=== PATIENT | male | born 1995 | race Caucasian/White ===

== ENCOUNTER 2023-04-10 14:52 | Outpatient (AMB) | payer OTHER, SELFPAY ==
--- NOTE | 2023-04-10 15:06 | MHC.OFFWIV ---
Intake Vital Signs 04/10/23 15:07 BP 122/82 Blood Pressure Location Rt brachial Position Sitting Pulse 78 Pulse Source Pulse Oximeter Pulse Oximetry (%) 98 Oxygen Delivery Method Room Air Intake Visit Reasons: EP Skin tags? Intake Note: Patient here for skin tags under both arm pits, they have been present for a few months, he states the newest skin tag is bother some. Patient Tobacco Use Status: Never used Tobacco Allergies No Known Allergies [No Known Allergies*] Allergy (Unverified 04/11/23 06:05) Medication List - Last Reconciled 04/11/23 by Clint Goel MD No Known Home Meds Do you need a note to return to daycare/school/sports/work: No HPI EP Skin tags? HPI Details 27-year-old male presents to the office for a sick visit. Patient has a few skin tags that he would like removed. [facility] Social History Alcohol intake: never Patient Tobacco Use Status: Never used Tobacco Physical Exam Vital Signs: Last Vital Signs Pulse 78 04/10/23 15:07 BP 122/82 04/10/23 15:07 Pulse Ox 98 04/10/23 15:07 Oxygen Delivery Method Room Air 04/10/23 15:07 Skin Other: Left axilla: minute tag which is not inflamed. Similar very small tags in the right axilla Assessment & Plan Assessment & Plan (1) Skin tag: Code(s): L91.8 - Other hypertrophic disorders of the skin Plan: Advised patient against excision of these tags. Patient was reassured. Coding Level of Care Code Est Pt Level 3 (92527) Diagnoses Skin tag L91.8
[2023-04-10 15:07] VITALS: BP 122/82; PULSE 78; O2SAT 98
== END 2023-04-10 15:41 | disposition home or self-care (01) ==
PROVIDERS: PCP Nurse Practitioner Family; Visit Provider Internal Medicine
DX: L91.8 Other hypertrophic disorders of the skin (principal)
CPT/HCPCS: 99213

== ENCOUNTER 2023-07-12 09:25 | Outpatient (AMB) | payer OTHER, SELFPAY ==
--- NOTE | 2023-07-12 09:26 | MHC.PC.OV ---
Vital Signs 07/12/23 09:29 07/12/23 09:36 Height 6 ft Weight 188 lb BMI 25.5 BP 140/100 H 140/90 H Blood Pressure Location Lt brachial Lt brachial Position Sitting Sitting Pulse 76 Pulse Source Pulse Oximeter Pulse Oximetry (%) 99 Oxygen Delivery Method Room Air Intake Visit Reasons: PE Allergies No Known Allergies [No Known Allergies*] Allergy (Unverified 07/12/23 09:38) Medication List - Last Reconciled 07/12/23 by JORDON Loomis No Known Home Meds Tobacco use date assessed: 07/12/23 Dental Screening Dental Screen Date: 07/12/23 Did you have a dental visit in the last 12 months?: No Did you have a dental problem in the last 6 months where you did not have access to dental care?: No Was dental information given to patient?: Patient has dentist HPI PE HPI Details Pt is here for a PE. Will order labs. Pt's blood pressure is elevated today. Will have pt monitor his blood pressure at home and record readings. Denies chest pain, shortness of breath, headache, dizziness, and blurred vision. Pt is very anxious today, reports stress , denies any SI or HI. [facility] Social History Housing: House Alcohol intake: never Patient Tobacco Use Status: Never used Tobacco e-Cigarette/Vaping Use: Never Used Current occupational status: employed Cognitive needs: No Hearing needs: No Vision needs: No Questionnaire AUDIT C Alcohol Use Questionnaire (AUDIT-C) 1. How often do you have a drink containing alcohol?: Never 3. How often do you have six or more drinks on one occasion?: Never Total Score: 0 Score Reviewed/Action Taken: No Review of Systems Const Denies chills and Denies fever(s) Eyes Denies blurry vision ENT Denies vertigo, Denies dizziness and Denies sore throat Card Denies chest pain at rest, Denies chest pain with activity, Denies diaphoresis, Denies dyspnea and Denies dyspnea on exertion Resp Denies cough, Denies dyspnea, Denies dyspnea on exertion and Denies wheezing GI Denies abdominal pain, Denies melena, Denies hematochezia, Denies constipation, Denies diarrhea and Denies loose stools Denies hematuria Musc Denies numbness and Denies tingling Skin/Breast Denies lesions Neuro Denies vertigo, Denies dizziness, Denies numbness and Denies tingling Psych Denies anxiety, Denies depression, Denies homicidal ideation, Denies suicidal ideation and Denies other (substance abuse) Aller/Immun Denies wheezing Physical exam (Primary Care) Vital Signs: Last Vital Signs Pulse 76 07/12/23 09:29 BP 140/90 H 07/12/23 09:36 Pulse Ox 99 07/12/23 09:29 Oxygen Delivery Method Room Air 07/12/23 09:29 BMI result Body Mass Index 25.5 Tobacco/Smoking Status: Tobacco use Status Tobacco use date assessed 07/12/23 07/12/23 09:31 Patient Tobacco Use Status Never used Tobacco 07/12/23 09:29 e-Cigarette/Vaping Use Never Used 07/12/23 09:31 Const General: cooperative Nutritional Appearance: well nourished Orientation/consciousness: patient oriented x3 HENMT Head: Yes normal to inspection, Yes normocephalic and Yes atraumatic Ears: TM's normal bilaterally Eyes General: appearance normal, both eyes and all related structures Alignment and Position: alignment normal and position normal Neck Neck: Yes normal visual inspection and Yes no lymphadenopathy Thyroid: Thyroid normal Resp Effort & Inspection: normal respiratory effort Auscultation: clear to auscultation bilaterally Cardio Rate: regular rate Rhythm: regular rhythm Heart sounds: S1 normal heart sound present, S2 normal heart sound present and no murmurs GI Palpation (GI): Soft to palpation and nontender Auscultation: normal bowel sounds Male General Exam: Yes normal external exam Penis: normal penis Scrotum: scrotum normal, testes descended bilaterally and no inguinal hernias Testes: no testicular mass Skin Other: small skin tag to right upper pubic region Rashes: no rashes Neuro General: patient oriented x3, moves all extremities, no focal motor deficits and deep tendon reflexes 2+ bilaterally Romberg Test: Negative Psych Appearance: grossly normal Mental Status: mental status grossly normal Speech and movement: Normal speech and movement present Affect: Anxious affect present Attitude: cooperative Thought process: Normal thought process present Thought content: Normal thought content present Insight: Good insight present (Psych) Judgement: Good judgement present (Psych) Assessment and Plan Assessment & Plan (1) Physical exam: Code(s): Z00.00 - Encounter for general adult medical examination without abnormal findings Plan: Labs ordered Plan The patient agreed to the use of a medical office supervisor for this encounter. Scribed for JORDON Cruz by Karen Campos medical office supervisor, on 07/12/2023 at 09:35 EST Orders: Orders TSH reflex Free T4 Today Z00.00 - Encounter for general adult medical examination without abnormal findings Lipid Panel Today Z00.00 - Encounter for general adult medical examination without abnormal findings Complete Blood Count Auto Diff Today Z00.00 - Encounter for general adult medical examination without abnormal findings Comprehensive [place]. Panel Fast Today Z00.00 - Encounter for general adult medical examination without abnormal findings UA CC w/rflx Micro + Cult Today Z00.00 - Encounter for general adult medical examination without abnormal findings Coding Level of Care Code Est Pt Prev Care 18-39y(27273) Diagnoses Physical exam Z00.00
[2023-07-12 09:29] VITALS: BP 140/100; PULSE 76; O2SAT 99; BMI 25.5
[2023-07-12 09:36] VITALS: BP 140/90
== END 2023-07-12 09:56 | disposition home or self-care (01) ==
PROVIDERS: PCP Nurse Practitioner Family; Visit Provider Nurse Practitioner Family
DX: Z00.00 Encounter for general adult medical examination without abnormal findings (principal)
CPT/HCPCS: 99395

== ENCOUNTER 2024-02-14 11:24 | Outpatient (AMB) | payer OTHER, SELFPAY ==
--- NOTE | 2024-02-14 11:35 | MHC.PC.OV ---
Vital Signs 02/14/24 11:38 Height 6 ft Weight 176 lb BMI 23.9 BP 130/86 Blood Pressure Location Rt brachial Position Sitting Pulse 76 Pulse Source Pulse Oximeter Pulse Oximetry (%) 99 Oxygen Delivery Method Room Air Intake Visit Reasons: 6 month follow up Intake Note: Patient here for physical exam. Allergies No Known Allergies [No Known Allergies*] Allergy (Unverified 02/14/24 11:54) Medication List - Last Reconciled 02/14/24 by JORDON Loomis No Known Home Meds Tobacco use date assessed: 02/14/24 Dental Screening Dental Screen Date: 02/14/24 Did you have a dental visit in the last 12 months?: No Did you have a dental problem in the last 6 months where you did not have access to dental care?: No Was dental information given to patient?: Patient has dentist HPI 6 month follow up HPI Details Pt is here for a PE. Labs have already been ordered. Pt recently dislocated his right knee playing soccer. He is going to PT. [facility] Medical History (Updated 02/14/24 @ 11:53 by JORDON Loomis) Right knee dislocation Social History Housing: House Alcohol intake: never Patient Tobacco Use Status: Never used Tobacco e-Cigarette/Vaping Use: Never Used Current occupational status: employed Cognitive needs: No Hearing needs: No Vision needs: No Questionnaire AUDIT C Alcohol Use Questionnaire (AUDIT-C) 1. How often do you have a drink containing alcohol?: Never 3. How often do you have six or more drinks on one occasion?: Never Total Score: 0 Score Reviewed/Action Taken: No Review of Systems Const Denies chills and Denies fever(s) Eyes Denies blurry vision ENT Denies vertigo, Denies dizziness and Denies sore throat Card Denies chest pain at rest, Denies chest pain with activity, Denies diaphoresis, Denies dyspnea and Denies dyspnea on exertion Resp Denies cough, Denies dyspnea, Denies dyspnea on exertion and Denies wheezing GI Denies abdominal pain, Denies melena, Denies hematochezia, Denies constipation, Denies diarrhea and Denies loose stools Denies hematuria Musc Denies numbness and Denies tingling Skin/Breast Denies lesions Neuro Denies vertigo, Denies dizziness, Denies numbness and Denies tingling Psych Denies anxiety, Denies depression, Denies homicidal ideation, Denies suicidal ideation and Denies other (substance abuse) Aller/Immun Denies wheezing Physical exam (Primary Care) Vital Signs: Last Vital Signs Pulse 76 02/14/24 11:38 BP 130/86 02/14/24 11:38 Pulse Ox 99 02/14/24 11:38 Oxygen Delivery Method Room Air 02/14/24 11:38 BMI result Body Mass Index 23.9 Tobacco/Smoking Status: Tobacco use Status Tobacco use date assessed 02/14/24 02/14/24 11:40 Patient Tobacco Use Status Never used Tobacco 02/14/24 11:37 e-Cigarette/Vaping Use Never Used 02/14/24 11:37 Const General: cooperative Nutritional Appearance: well nourished Orientation/consciousness: patient oriented x3 HENMT Head: Yes normal to inspection, Yes normocephalic and Yes atraumatic Ears: TM's normal bilaterally Eyes General: appearance normal, both eyes and all related structures Alignment and Position: alignment normal and position normal Neck Neck: Yes normal visual inspection and Yes no lymphadenopathy Thyroid: Thyroid normal Resp Effort & Inspection: normal respiratory effort Auscultation: clear to auscultation bilaterally Cardio Rate: regular rate Rhythm: regular rhythm Heart sounds: S1 normal heart sound present, S2 normal heart sound present and no murmurs GI Palpation (GI): Soft to palpation and nontender Auscultation: normal bowel sounds Male General Exam: Yes normal external exam Penis: normal penis Scrotum: scrotum normal, testes descended bilaterally and no inguinal hernias Testes: no testicular mass Skin Rashes: no rashes Neuro General: patient oriented x3, moves all extremities, no focal motor deficits and deep tendon reflexes 2+ bilaterally Romberg Test: Negative Extrem Other: right knee slightly swollen, able to flex and extend right knee without difficulty, very slight discomfort noted Psych Appearance: grossly normal Mental Status: mental status grossly normal Speech and movement: Normal speech and movement present Affect: normal affect Attitude: cooperative Thought process: Normal thought process present Thought content: Normal thought content present Insight: Good insight present (Psych) Judgement: Good judgement present (Psych) Assessment and Plan Assessment & Plan (1) Encounter for routine adult physical exam with abnormal findings: Code(s): Z00.01 - Encounter for general adult medical examination with abnormal findings (2) Right knee dislocation: Code(s): S83.104A - Unspecified dislocation of right knee, initial encounter Plan: going to PT. Plan The patient agreed to the use of a bilingual medical assistant for this encounter. Scribed for JORDON Cruz by Karen Campos bilingual medical assistant, on 02/14/2024 at 11:45 EST. Coding Level of Care Code Est Pt Prev Care 18-39y(79902) Diagnoses Encounter for routine adult physical exam with abnormal findings Z00.01 Right knee dislocation S83.104A
[2024-02-14 11:38] VITALS: BP 130/86; PULSE 76; O2SAT 99; BMI 23.9
== END 2024-02-14 11:58 | disposition home or self-care (01) ==
PROVIDERS: PCP Nurse Practitioner Family; Visit Provider Nurse Practitioner Family
DX: Z00.00 Encounter for general adult medical examination without abnormal findings (principal); S83.104A Unspecified dislocation of right knee, initial encounter
CPT/HCPCS: 99395

== ENCOUNTER 2024-03-26 10:55 | Outpatient (AMB) | payer OTHER, SELFPAY ==
--- NOTE | 2024-03-26 10:59 | MHC.OFFWIV ---
Intake Vital Signs 03/26/24 11:00 Height 6 ft Weight 180 lb BMI 24.4 BP 130/82 Blood Pressure Location Rt brachial Position Sitting Pulse 78 Pulse Source Pulse Oximeter Temp 98.0 F Temp Source Temporal Artery Scan Pulse Oximetry (%) 97 Intake Visit Reasons: EP bump on back of rt knee Sunday Intake Note: pt is here for bump on back of right knee since sunday Patient Tobacco Use Status: Never used Tobacco Allergies No Known Allergies [No Known Allergies*] Allergy (Verified 03/26/24 11:01) Do you need a note to return to daycare/school/sports/work: No HPI HPI Comments History of Present Illness Details Patient is a 28-year-old male complaining of a bump in the back of his right knee. He states he injured his knee on January 08 and was told he has a meniscus tear with other issues but he went to physical therapy and everything is healed. But he just noticed this lump a few weeks ago when he was working out at the gym. He states it is not painful. [facility] Medical History (Updated 03/26/24 @ 11:28 by Rosalie Webber PA-C) Right knee dislocation Social History Housing: House Alcohol intake: never Patient Tobacco Use Status: Never used Tobacco e-Cigarette/Vaping Use: Never Used Current occupational status: employed Cognitive needs: No Hearing needs: No Vision needs: No Review of Systems Const All systems reviewed & are unremarkable except as noted in HPI and below Physical Exam Vital Signs: Last Vital Signs Temp 98.0 F 03/26/24 11:00 Pulse 78 03/26/24 11:00 BP 130/82 03/26/24 11:00 Pulse Ox 97 03/26/24 11:00 BMI result Body Mass Index 24.4 Const General: cooperative, healthy appearing, comfortable, no acute distress and well developed Orientation/consciousness: patient oriented x3 Limitations: no limitations Eyes General: appearance normal, both eyes and all related structures Resp Effort & Inspection: normal respiratory effort and able to speak in complete sentences Neuro General: patient oriented x3 Extrem Left lower extremity: hip/thigh (Small, non mobile, firm lump on distal medial posterior thigh (almost knee)) Details: normal to inspection and normal ROM; no tenderness, no swelling, no abrasions, no lacerations, no ecchymosis, no deformity and no unusual warmth Assessment & Plan Assessment & Plan (1) Lymph node enlargement: Code(s): R59.9 - Enlarged lymph nodes, unspecified Plan: Explained to patient that this feels like a lymph node, could be enlarged because of his recent injury. It could stay the same or a critical down over time. If it gets worse or gets bigger or becomes painful, he knows to call his PCP and ask for an ultrasound to investigate further. Plan See above Coding Level of Care Code Est Pt Level 3 (98518) Diagnoses Lymph node enlargement R59.9
[2024-03-26 11:00] VITALS: BP 130/82; PULSE 78; TEMP 36.7; O2SAT 97; BMI 24.4
== END 2024-03-26 11:39 | disposition home or self-care (01) ==
PROVIDERS: PCP Nurse Practitioner Family; Visit Provider Physician Assistant
DX: R59.9 Enlarged lymph nodes, unspecified (principal)
CPT/HCPCS: 99213

== ENCOUNTER 2024-04-25 14:53 | Outpatient (AMB) | payer OTHER, SELFPAY ==
[2024-04-25 15:13] VITALS: BP 118/80; PULSE 65; TEMP 36.7; O2SAT 98; BMI 24.4
--- NOTE | 2024-04-25 15:13 | MHC.OFFWIV ---
Intake Vital Signs 04/25/24 15:13 Height 6 ft Weight 180 lb BMI 24.4 BP 118/80 Blood Pressure Location Rt brachial Position Sitting Pulse 65 Pulse Source Pulse Oximeter Temp 98.0 F Temp Source Temporal Artery Scan Pulse Oximetry (%) 98 Oxygen Delivery Method Room Air Intake Visit Reasons: bump on left side waist Intake Note: pt c/o bump on LT side groin. not painful. x 2 months Patient Tobacco Use Status: Never used Tobacco Allergies No Known Allergies [No Known Allergies*] Allergy (Verified 04/25/24 15:13) Do you need a note to return to daycare/school/sports/work: No HPI HPI Comments History of Present Illness Details This is a 28-year-old male who presented to the walk-in clinic complaining of a lesion on his pubic area. He states it has been going on for several months. He states he brought it up to his primary care physician who told him not to worry about it; however, he states that his primary care physician did offer cryotherapy versus curettage although patient declined at that time. He states that it is not bothersome but he is not thrilled about the location of the lesion. [facility] Medical History (Updated 03/26/24 @ 11:28 by Rosalie Webber PA-C) Right knee dislocation Social History Housing: House Alcohol intake: never Patient Tobacco Use Status: Never used Tobacco e-Cigarette/Vaping Use: Never Used Current occupational status: employed Cognitive needs: No Hearing needs: No Vision needs: No Review of Systems Const All systems reviewed & are unremarkable except as noted in HPI and below Reports no additional complaints Eyes Reports no additional complaints ENT Reports no additional complaints Card Reports no additional complaints Resp Reports no additional complaints GI Reports no additional complaints Reports no additional complaints Musc Reports no additional complaints Skin/Breast Reports system reviewed and no additional complaints, except as documented Neuro Reports no additional complaints Psych Reports no additional complaints Endo Reports no additional complaints Bishop/Lymph Reports no additional complaints Aller/Immun Reports no additional complaints Physical Exam Vital Signs: Last Vital Signs Temp 98.0 F 04/25/24 15:13 Pulse 65 04/25/24 15:13 BP 118/80 04/25/24 15:13 Pulse Ox 98 04/25/24 15:13 Oxygen Delivery Method Room Air 04/25/24 15:13 BMI result Body Mass Index 24.4 Const Other: Vital signs reviewed. Constitutional: Non-toxic appearing. No acute distress. Well-developed and well-nourished. HEENT: Normocephalic and atraumatic. Skin: Warm and dry. There is a firm dome shaped lesion present on the patient's pubic area. There is no surrounding erythema. Neck: Full and painless range of motion. No cervical lymphadenopathy. Cardio: Regular rate. No lower extremity edema. No JVD. Pulmonary: No respiratory distress. No accessory muscle usage. Gastrointestinal: Soft, nontender, and nondistended in all 4 quadrants. Musculoskeletal: Normal range of motion in joints throughout the body. No deformity or other signs of injury. Neuro: Alert and oriented x4. Cranial nerves 2-12 grossly intact. No focal deficits appreciated. Psych: Normal mood and affect. Assessment & Plan Assessment & Plan (1) Skin lesion: Code(s): L98.9 - Disorder of the skin and subcutaneous tissue, unspecified Plan: This is a 28-year-old male who presented to the walk-in clinic complaining of a lesion to his pubic area. On physical examination, there is a firm dome-shaped papule to the left side of his pubic region. This appears consistent with molluscum contagiosum although this diagnosis can not be confirmed. The other differential diagnosis would be verrucae. I explained to the patient that these lesions are likely benign and would be self-limiting; however, patient was asking for treatment given the location of this lesion in the fact that he is sexually active. I advised the patient that I can not perform cryotherapy here as we do not yet have the supplies as they are although I am told we are ordering more. I am also unable to perform curettage. Patient was made aware that these treatments should be performed by clinician. Patient was encouraged to follow up with PCP for possible treatment options. Patient verbalizes understanding and he was in agreement with the plan and the patient was extremely appreciative of the help. Coding Level of Care Code Est Pt Level 3 (01230) Diagnoses Skin lesion L98.9
== END 2024-04-25 15:50 | disposition home or self-care (01) ==
PROVIDERS: PCP Nurse Practitioner Family; Visit Provider Physician Assistant Medical
DX: L98.9 Disorder of the skin and subcutaneous tissue, unspecified (principal)
CPT/HCPCS: 99213

== ENCOUNTER 2024-06-04 13:42 | Outpatient (AMB) | payer OTHER, SELFPAY ==
--- NOTE | 2024-06-04 13:50 | MHC.OFFWIV ---
Intake Vital Signs 06/04/24 13:51 Height 6 ft Weight 182 lb BMI 24.7 BP 128/80 Blood Pressure Location Lt brachial Position Sitting Pulse 90 Pulse Source Pulse Oximeter Temp 98.0 F Temp Source Oral Pulse Oximetry (%) 99 Oxygen Delivery Method Room Air Intake Visit Reasons: EP infected bump Intake Note: pt c/o bump in groin area. Discharge. Ongoing x 1 month. No pain Patient Tobacco Use Status: Never used Tobacco Allergies No Known Allergies [No Known Allergies*] Allergy (Verified 06/04/24 13:51) Do you need a note to return to daycare/school/sports/work: No HPI HPI Comments History of Present Illness Details Patient is a 28-year-old male complaining of a lesion on his upper pubic area that started bleeding today. He is not quite sure why. He states he has an appointment with Dermatology in 1 month about the lesion, he was told it was most likely molluscum and he was looking to get it frozen off by Dermatology. He states that today he noticed it was leaking some blood, he was not sure if he hit it on anything but he could not recall a specific injury. He is worried that it is infected. [facility] Medical History (Updated 06/04/24 @ 14:17 by Rosalie Webber PA-C) Right knee dislocation Social History (Reviewed 02/14/24 @ 11:54 by Rivera Colbert, [facility]) Housing: House Alcohol intake: never Patient Tobacco Use Status: Never used Tobacco e-Cigarette/Vaping Use: Never Used Current occupational status: employed Cognitive needs: No Hearing needs: No Vision needs: No Review of Systems Const All systems reviewed & are unremarkable except as noted in HPI and below Physical Exam Vital Signs: Last Vital Signs Temp 98.0 F 06/04/24 13:51 Pulse 90 06/04/24 13:51 BP 128/80 06/04/24 13:51 Pulse Ox 99 06/04/24 13:51 Oxygen Delivery Method Room Air 06/04/24 13:51 BMI result Body Mass Index 24.7 Const General: cooperative, healthy appearing, comfortable, no acute distress and well developed Orientation/consciousness: patient oriented x3 Limitations: no limitations HEENT Head: Yes normal to inspection Neck Neck: Yes normal visual inspection and Yes supple Skin Other: Suprapubic area has a 0.5 cm papule with a central crust, removed the crust and there is a pinpoint area of blood. Neuro General: patient oriented x3 Assessment & Plan Assessment & Plan (1) Skin lesion: Code(s): L98.9 - Disorder of the skin and subcutaneous tissue, unspecified Plan: Physical exam showed no signs of infection, looks like he had a little bit of trauma to the area and it bled a little bit, possibly a little bit of an ingrown hair. Recommended he keep his appointment with [facility] next month so they can biopsy the lesion and treated appropriately. Plan See above Coding Level of Care Code Est Pt Level 3 (53370) Diagnoses Skin lesion L98.9
[2024-06-04 13:51] VITALS: BP 128/80; PULSE 90; TEMP 36.7; O2SAT 99; BMI 24.7
== END 2024-06-04 14:14 | disposition home or self-care (01) ==
PROVIDERS: PCP Nurse Practitioner Family; Visit Provider Physician Assistant
DX: L98.9 Disorder of the skin and subcutaneous tissue, unspecified (principal)
CPT/HCPCS: 99213

== ENCOUNTER 2024-06-26 14:35 | Outpatient (AMB) | payer OTHER, SELFPAY ==
--- NOTE | 2024-06-26 14:57 | AM.OFFWIN_ITS ---
Intake Vital Signs 3 06/26/24 14:58 Height 6 ft Weight 180 lb BMI 24.4 BP 112/80 Blood Pressure Location Rt brachial Position Sitting Pulse 62 Pulse Source Pulse Oximeter Pulse Oximetry (%) 98 Oxygen Delivery Method Room Air Intake Visit Reasons: EP ? ingrown toenail on left thumb Intake Note: Patient here for ingrown nail on great toe on left foot. Patient Tobacco Use Status: Never used Tobacco Allergies No Known Allergies [No Known Allergies*] Allergy (Verified 06/26/24 14:59) Do you need a note to return to daycare/school/sports/work: No HPI HPI Comments 2 History of Present Illness0 Details Patient is a 28-year-old male complaining of what he thinks is an ingrown toenail on the great toe of his left foot, he is also complaining of yellowing of the toenail and is asking for treatment of that. He states the area around the toenail has been leaking fluid but mostly blood and it is very tender. [facility] Medical History (Updated 06/26/24 @ 15:42 by Rosalie Webber PA-C) Right knee dislocation Social History Housing: House Alcohol intake: never Patient Tobacco Use Status: Never used Tobacco e-Cigarette/Vaping Use: Never Used Current occupational status: employed Cognitive needs: No Hearing needs: No Vision needs: No Review of Systems Const All systems reviewed & are unremarkable except as noted in HPI and below Physical Exam Vital Signs: Last Vital Signs Pulse 62 06/26/24 14:58 BP 112/80 06/26/24 14:58 Pulse Ox 98 06/26/24 14:58 Oxygen Delivery Method Room Air 06/26/24 14:58 BMI result Body Mass Index 24.4 Const General: cooperative, healthy appearing, comfortable, no acute distress and well developed Orientation/consciousness: patient oriented x3 Limitations: no limitations HEENT Head: Yes normal to inspection Neck Neck: Yes normal visual inspection and Yes supple Neuro General: patient oriented x3 Extrem Ankle/foot/toe images: 2 1. Indurated erythematous area around the base and medial side of the left great toenail, crusted dried blood around the edge of the toenail; toenail itself has some yellowing; NVI, full ROM Assessment & Plan Assessment & Plan (1) Paronychia of great toe of left foot: Code(s): L03.032 - Cellulitis of left toe Plan: As area is indurated and clearly is only draining bled as evidenced by the crusted blood around the edge of it, we will treat with antibiotics. (2) Onychomycosis: Code(s): B35.1 - Tinea unguium Plan: Recommended patient reach out to his primary care doctor for treatment, explained that he needs labs to follow his liver function while he is taking any medications to treat onychomycosis Plan See above Medications: New 2 cefuroxime axetil 500 mg PO Q12H 10 tabs 0RF Coding Level of Care Code Est Pt Level 3 (88482) Diagnoses Paronychia of great toe of left foot L03.032 Onychomycosis B35.1
[2024-06-26 14:58] VITALS: BP 112/80; PULSE 62; O2SAT 98; BMI 24.4
== END 2024-06-26 15:43 | disposition home or self-care (01) ==
PROVIDERS: PCP Nurse Practitioner Family; Visit Provider Physician Assistant
DX: L03.032 Cellulitis of left toe (principal); B35.1 Tinea unguium

== ENCOUNTER → 2024-06-26 14:35 | Outpatient (BNVA) | payer OTHER, SELFPAY | PROVIDERS: PCP Nurse Practitioner Family ==

== ENCOUNTER 2024-07-24 13:57 | Outpatient (AMB) | payer OTHER, SELFPAY ==
--- NOTE | 2024-07-24 14:09 | MHC.OFFWIV ---
Intake Vital Signs 07/24/24 14:13 Height 6 ft Weight 180 lb BMI 24.4 BP 120/82 Blood Pressure Location Rt brachial Position Sitting Pulse 66 Pulse Source Pulse Oximeter Pulse Oximetry (%) 98 Oxygen Delivery Method Room Air Intake Visit Reasons: EP ? infection on his LT toe Intake Note: Patient here for toe on left foot and was put on antibiotics a couple of weeks ago which helped with the swelling but never fully went away and no wit may be happening to the to on the right foot. Patient Tobacco Use Status: Never used Tobacco Allergies No Known Allergies [No Known Allergies*] Allergy (Verified 07/24/24 14:14) Do you need a note to return to daycare/school/sports/work: No HPI HPI Comments History of Present Illness Details Patient is a 28-year-old male complaining of continued left toe pain and swelling. Was seen here a few weeks ago and given cefuroxime for paronychia that was not drainable. He states everything seemed to get better but now it is worse and it is starting on his right great toe. 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 He did try to see a stonecutter apprentice hand but he could not get an appointment until September. He does tell me he does but he is mostly getting blood out and there is not a lot of other fluid that comes out. [facility] Medical History (Updated 06/26/24 @ 15:42 by Rosalie Webber PA-C) Right knee dislocation Social History Housing: House Alcohol intake: never Patient Tobacco Use Status: Never used Tobacco e-Cigarette/Vaping Use: Never Used Current occupational status: employed Cognitive needs: No Hearing needs: No Vision needs: No Review of Systems Const All systems reviewed & are unremarkable except as noted in HPI and below Physical Exam Vital Signs: Last Vital Signs Pulse 66 07/24/24 14:13 BP 120/82 07/24/24 14:13 Pulse Ox 98 07/24/24 14:13 Oxygen Delivery Method Room Air 07/24/24 14:13 BMI result Body Mass Index 24.4 Const General: cooperative, healthy appearing, comfortable, no acute distress and well developed Orientation/consciousness: patient oriented x3 Limitations: no limitations HEENT Head: Yes normal to inspection Neck Neck: Yes normal visual inspection and Yes supple Neuro General: patient oriented x3 Extrem Other: Left great toe has area of erythema at the base of the toenail with swelling, tender to palpation, blood crusted around the entire edge of the base of the toenail. Right great toe has a small area of erythema on the lateral base of the toenail, very slight swelling and erythema, no tenderness to palpation, small crusted blood in this area Assessment & Plan Assessment & Plan (1) Paronychia of great toe of left foot: Code(s): L03.032 - Cellulitis of left toe Plan: We will treat with doxycycline as cefuroxime seemed to help a little bit but was not quite enough to knock it out completely. There is very little fluid, patient is telling me mostly blood comes out of it, so I do not want to do an incision and drainage. The right great toe is not large enough to try to drain. Also recommended he get new cleats and take a break from soccer for a couple of weeks until these toes heal. Recommended he keep the appointment with the stonecutter apprentice hand in September. Plan see above Medications: New doxycycline hyclate 100 mg PO BID 14 tabs 0RF Coding Level of Care Code Est Pt Level 3 (81509) Diagnoses Paronychia of great toe of left foot L03.032
[2024-07-24 14:13] VITALS: BP 120/82; PULSE 66; O2SAT 98; BMI 24.4
== END 2024-07-24 14:41 | disposition home or self-care (01) ==
PROVIDERS: PCP Nurse Practitioner Family; Visit Provider Physician Assistant
DX: L03.032 Cellulitis of left toe (principal)

== ENCOUNTER → 2024-07-24 13:57 | Outpatient (BNVA) | payer OTHER, SELFPAY | PROVIDERS: PCP Nurse Practitioner Family; Visit Provider Physician Assistant ==

== ENCOUNTER 2025-01-08 12:22 | Outpatient (AMB) | payer OTHER, SELFPAY ==
--- NOTE | 2025-01-08 13:12 | AM.OFFWIN_ITS ---
Intake Vital Signs 01/08/25 13:13 Weight 180 lb BP 118/70 Blood Pressure Location Lt brachial Position Sitting Pulse 70 Pulse Source Pulse Oximeter Pulse Oximetry (%) 98 Oxygen Delivery Method Room Air Intake Visit Reasons: EP ?lump on the back of throat Intake Note: Patient here for lump on back of throat that he noticed sunday. Patient Tobacco Use Status: Never used Tobacco Allergies No Known Allergies [No Known Allergies*] Allergy (Verified 01/08/25 13:14) Do you need a note to return to daycare/school/sports/work: No HPI HPI Comments History of Present Illness Details History - The patient is a 29-year-old male pres enting with oral discomfort with sensation of a lump in the throat. - He experienced a sensation of a lump i n the tonsillar region for the past three to four days, which was non-painful but noticeable when swallowing. - The patient reports a persistent irrit ation on the right side of the tongue, though it was not accompanied by pain. - No recent history of fever, ear pain, or cough was noted, with only usual congestion reported. - The patient denied intake of any forei gn body or recollecting incidents of choking. - Denies being around sick individuals - The patient does not suffer from signi ficant seasonal allergies. - Currently, the sensation of the lump i s noted as less prominent compared to previous days. - Does admit to white patches on the ton farrah. Physical Exam General: Cooperative, healthy appearing, comfortable and no acute distress Orientation/consciousness: Patient oriented x3 Limitations: No limitations Head: Normal to inspection Ears: Hearing grossly normal bilaterally, external ears normal and TM's normal bilaterally Nose: Normal external nose present, Normal nares present and No nasal discharge present Face and sinus: Normal facial exam Mouth: Normal oral and palatal mucosa present and moist mucous membranes, white patch on central posterior tongue. Throat: Yes tonsils normal, Yes uvula midline. slight posterior oropharynx erythema Eyes: Appearance normal, both eyes and all related structures Neck: Normal visual inspection Respiratory: Normal respiratory effort, able to speak in complete sentences, Ac tively coughing, no respiratory distress, not tachypneic, no tripod positioning and no use of accessory muscles Skin: No rashes or lesions noted Neuro: Patient oriented x3 Extremities: Normal to inspection and Yes no clubbing, cyanosis or edema [facility] Medical History (Updated 01/08/25 @ 13:55 by Rosalie Webber PA-C) Right knee dislocation Social History Housing: House Alcohol intake: never Patient Tobacco Use Status: Never used Tobacco e-Cigarette/Vaping Use: Never Used Current occupational status: employed Cognitive needs: No Hearing needs: No Vision needs: No Review of Systems Const All systems reviewed & are unremarkable except as noted in HPI and below Physical Exam Vital Signs: Last Vital Signs Pulse 70 01/08/25 13:13 BP 118/70 01/08/25 13:13 Pulse Ox 98 01/08/25 13:13 Oxygen Delivery Method Room Air 01/08/25 13:13 Assessment & Plan Assessment & Plan (1) Thrush, oral: Code(s): B37.0 - Candidal stomatitis Plan: VSS, pt well appearing and PE remarkable for white coating on tongue. The examination showed normal tonsils, and no signs of other infections like strep were observed. I directed the patient to initiate treatment with clotrimazole troches five times daily, for seven days, to target the suspected oral candidiasis responsible for the sensation of a lump and irritation. The treatment should effectively reduce the white patches and relieve symptoms. If there is no significant improvement in symptoms, we can consider alternative or al antifungal therapy. The patient will follow this plan and return for further evaluation if symptoms persist beyond the treatment course. Patient was informed and verbally consented to the use of an ambient scribe for clinic note documentation during this visit Medications: New clotrimazole 10 mg mucous membrane .five times a day 35 tabs 0RF Coding Level of Care Code Est Pt Level 3 (99004) Diagnoses Thrush, oral B37.0
[2025-01-08 13:13] VITALS: BP 118/70; PULSE 70; O2SAT 98
--- OUTSIDE RECORDS SUMMARY | 2025-01-08 15:10 | XMS_ITS ---
[facility] [place] Address [address] [facility] [place] [address] Care Team Providers Care Accounts Payable Representative Name Role Phone Rivera Núñez Primary Care Provider Unav ailable Black, Norma Unavailable [phone] Allergies No Known Allergies REASON FOR VISIT pcp-01/2024, Possible Infection Medications Medication SIG (Take, Route, Frequency, Duration) Notes Start Date End Date Status Doxycycline Hyclate 100 MG Oral for 7 Days Not-Taking Cefuroxime Axetil 500 MG Oral for 5 Days Not-Taking Cephalexin 500 MG 1 capsule Orally twi ce a day for 10 days 08/13/2024 Active Social History Tobacco Use: Social History Observation Description Date Details (start date - stop date) Never Smoker NA - NA Tobacco use other than smoking: Question Answer Notes Are you an other tobacco user? No Tobacco Control (Standard) Question Answer Notes Tobacco use: Nonsmoker AUDIT-C (Standard) Question Answer Notes Did you have a drink containing alcohol in the p ast year? No Points 0 Interpretation Negative Vital Signs Height 6ft in 08/13/2024 Weight 180 lbs 08/13/2024 BMI 24.41 kg/m2 08/13/2024 Procedures Procedure Date Ordered Date Performed Result Body Sit e 44861 I&D ABSCESS- SIMPLE,SINGLE 08/13/2024 N/A Encounters Encounter Location Date [facility] [facility] [place] [address] 08/13/2024 Norma Black Abscess of toe, left L02.612 ; Cellulitis of left toe L03.032 and Left foot pain M79.672 Assessments Encounter Date Diagnosis (ICD Code) Assessment Notes Treatment Notes Treatment Clinical Notes Section Notes 08/13/2024 Abscess of toe, left (ICD-10 - L02.612) Patient Educated with: WOUND CARE INSTRUCTIONS.p df (WOUND CARE INSTRUCTIONS.p df) l 08/13/2024 Cellulitis of left toe (ICD-10 - L03.032) l 08/13/2024 Left foot pain (ICD-10 - M79.672) l Plan Of Treatment Medication Medication Name Sig Start Date Stop Date Notes Cephalexin 500 MG 1 capsule Orally twice a day for 10 days 08/13/2024 Treatment Notes Assessment Notes Abscess of toe, left Patient Educated wi th: WOUND CARE INSTRUCTIONS.pdf (WOUND CARE INSTRUCTIONS.pdf) Pending Test Test Name Order Date 87574 I&D ABSCESS- SIMPLE,SINGLE 024 Next Appt Details Follow Up: 2 Weeks, Reason: Procedure Notes * Category Sub-Category Detail Notes I&D nail abscess Location , Total nail, T A Procedure Performed incision a nd drainage of Single Nail Abscess with use of sterile nail nipper/316 blade. Approximately ( 0.1 ) cc purulent fluid material was drained. The infected devitalized soft tissue was curettaged to healthy bleeding bed. Any affected nail portion was removed to the eponychium . Any evidence of granuloma was also removed at this time. No underlying bone was visualized. There was minimal bleeding as hemostasis was achieved through the temporary use of either a digital tournaquet or the aforementioned local with epinephrine. An application of sterile Bacitracin dressing was performed. Local wound care instructions were discussed and dispensed. Recommended Tylenol or Motrin for pain/discomfort (85782) Type Single, Abscess Anesthesia 3 cc of 1 percent Li docaine Plain local anesthesic utilizing aseptic technique Progress Notes * Neel OLSEN ADOB: [birth year] (28 yo M)Acc No.[id number]:08/13/2024 Progress Notes Patient:?Neel OLSEN Provider:?Norma Lutz DPM :1995???Age:28 Y???Sex:Male Kosta e:08/13/2024 Address:[address], [employer], [facility] Pcp:JACOB Cruz Subjective: * Chief Complaints: * ???Pcp-4Possible Infec tion * HPI: ???Possible Infection:?Nature:?drainage, swelling, throbbing, redness, weeping.?Location:?Great toe, Left foot.?Duration:?several months.?Onset:?sudden.?Course:?worse.?Aggravated by:?any pressure.?Treatments:?medication ( 2 rounds of oral antibiotics- Cefuroxime Axetil 500mg and doxycycline 100mg ), did not improve condition.? * ROS:?General/Constitutional:?Nausea?denies.?Vomiting?denies.?Hunger Thirst?denies.?Loss appetite?denies.?Chills?denies.?Fatigue?denies.?Fever?denies.?Night Sweats?denies.?Unexplained weight loss?denies.?Unexplained weight gain?denies.?HEENTM:?Dentures?denies.?Dizziness?denies.?Glasses/contacts?denies.?Retinopathy?de nies.?Blurred/double vision?denies.?TMJ?denies.?Discharge/drainage?denies.?Implants?denies.?Sore throat?denies.?Dental implants?denies.?Hard of hearing ?denies.?Difficulty chewing/swallowing/speaking?denies.?Nose bleeds?denies.?Sore mouth?denies.?Respiratory:?On Oxygen?denies.?Pneumonia/pleurisy?denies.?Bronchitis?denies.?Emphysema?denies.?C oughing?denies.?Cough blood?denies.?Shortness of breath?denies.?Wheezing?denies.?Cardiovascular:?Pacemaker?denies.?MVP?denies.?WPW?denies.?CHF?denies.?Heart attack?denies.?Septal defect?denies.?Rapid beat?denies.?Chest pain ?denies.?Atrial Fib.?denies.?Murmur/Palpitations?denies.?Gastrointestinal:?Hemorrhoids?denies.?Stomach/Abdominal pain?denies.?Dark blood stool?denies.?Irritable bowel ?denies.?Constipation?denies.?Diarrhea?denies.?Hematology:?Swelling?denies.?Clots?denies.?Varicose Veins?denies.?Bruising?denies.?Bleeding problem?denies.?Genitourinary:?Blood urine?denies.?Frequent/Painfu/urination/bladder control?denies.?Kidney stones?denies.?Infection (UTI)?denies.?Nephropathy?denies.?sex trans dis (STD)?denies.?Prostate?denies.?Musculoskeletal:?Hammertoes?denies.?Bunions?denies.?Back Pain?denies.?Muscle Cramps/ Resting?denies.?Muscle cramps / walking?denies.?Generalized aches and pains?admits.?Weakness?denies.?Integ.:?Hopson?denies.?Scars?denies.?Corns/calluses?denies.?Ingrown nails?admits.?Painful nails?admits.?Open Sores?denies.?Rashes?denies.?Neurologic:?Difficulty sleeping?denies.?Brain disorder?denies.?Numbness?denies.?Balance trouble?denies.?Confusion?denies.?Fainting/blackouts?denies.?Tingling?denies.?Tr emors?denies.? * Medical History:? * Surgical History:?Denies Pas t Surgical History * Hospitalization/Major Diagno stic Procedure:?Denies Past Hospitalization * Family History:?No Family Hi story documented..? * Social History:?Tobacco Use:?Tobacco use other than smoking?Are you an other tobacco user??No ?Tobacco Control (Standard)?Tobacco use:?Nonsmoker ???Drugs/Alcohol:?Drugs?Have you used drugs other than those for medical reasons in the past 12 months??No ???Miscellaneous:?Caffeine: no. ?Children: no. ?Exercise: yes, gym, sports. ?Marital status: single. ?Occupation: Works Full-time [employer]. ???Drug/Alcohol:?AUDIT-C (Standard)?Did you have a drink containing alcohol in the past year??No ?Points?0 ?Interpretation?Negative * Medications:?Not-Taking/PRNC efuroxime Axetil 500 MG Tablet Oral Doxycycline Hyclate 100 MG Tablet Oral Medication List reviewed and reconciled with the patientNot-Taking/PRN Cefuroxime Axetil 500 MG Tablet Oral Not-Taking/PRN Doxycycline Hyclate 100 MG Tablet Oral Medication List reviewed and reconciled with the patient * Allergies:?N.K.D.A.yes[Aller gies Verified] Objective: * Vitals:?Ht: 6ft, Wt:180, BMI :24.41, Shoe size: 10, Ht-cm: 182.88 cm, Wt-k.65 kg. * Examination: ???General Examination: ?GENERAL APPEARANCE:? Denies fever, chills, malaise, lymphadenopathy.?Abscess/infected nail: ?INSPECTION?Reveals Subungual Abscess with nail fluctuance, mild localized erythema, and yellow purulent fluid with pre-operative size approximately ( 1-2 ) mm square, but without exposed bone, TA.?Dermatologic: ?SKIN FINDINGS:?Skin shows sign(s) of, cellulitis with localized lymphangitis to the level of the1st MTPJ left.?Neurological: ?SENSORY:?Neurological exam reveals intact sensorium, pain sensation normal, vibration sensation intact, pinprick sensation is normal in the lower extremities, Pt denies, anesthesia, burning, paresthesia, tingling, B/L.?Vascular: ?DP PULSES(B):?2/4, B/L.?PT PULSES(B):?2/4, B/L.?CAPILLARY FILL TIME:?immediate, all digits, B/L.?TROPHIC CONDITION-TEXTURE/ELASTICITY/TURGOR/HAIR GROWTH(B):?normal, B/L.?TEMPERTURE GRADIENT(C):?normal, warm to cool, proximal to distal, B/L, B/L.?PIGMENTATION:?normal, B/L.?EDEMA(C):?absent, B/L.? Assessment: * Assessment: 1.?Cellulitis of left toe - L03.032 (Primary)???2.?Abscess of toe, left - L02.612???3.?Left foot pain - M79.672??? l Plan: * Treatment: 2.?Abscess of toe, left?Procedure: 57719 I&D ABSCESS- SIMPLE,SINGLE Notes: Patient Educated with: WOUND CARE INSTRUCTIONS.pdf (WOUND CARE INSTRUCTIONS.pdf)?? * Procedures:?I&D nail abscess:?Type?Single, Abscess.?Anesthesia?3 cc of 1 percent?Lidocaine Plain local anesthesic utilizing aseptic technique.?Location?, Total nail, TA.?Procedure?Performed incision and drainage of Single Nail Abscess with use of sterile nail nipper/316 blade. Approximately ( 0.1 ) cc purulent fluid material was drained. The infected devitalized soft tissue was curettaged to healthy bleeding bed. Any affected nail portion was removed to the eponychium . Any evidence of granuloma was also removed at this time. No underlying bone was visualized. There was minimal bleeding as hemostasis was achieved through the temporary use of either a digital tournaquet or the aforementioned local with epinephrine. An application of sterile Bacitracin dressing was performed. Local wound care instructions were discussed and dispensed. Recommended Tylenol or Motrin for pain/discomfort (42684).? * Procedure Codes:?30696 DRAIN AGE OF SKIN ABSCESS, Modifiers: TA * Preventive Medicine:? ??Counseling:?Discussion:?-04: Office or other outpatient visit for the evaluation and management of a new patient, which required a medically appropriate history and/or examination and MODERATE level of DECISION MAKING for: 1 OR MORE CHRONIC PROBLEM(S) THATS WORSENING, 2 STABLE CHRONIC PROBLEMS, A NEWLY DIAGNOSED PROBLEM WITH UNCERTAIN PROGNOSIS, AN ACUTE COMPLICATED INJURY WITH MULTIPLE TREATMENT OPTIONS, OR AN ACUTE PROBLEM WITH ACCOMPANYING SYSTEMIC SYMPTOMS, THAT POSE(S) A MODERATE RISK OF MORBIDITY. THIS CONDITION MAY ALSO INCLUDE RX DRUG MANAGEMENT, OR A DECISON FOR MINOR SURGERY. The visit on the day of the encounter encompassed interpreting the data and educating the patient as to the nature of their condition, treatment options available according to their individual PMH, meds, allergies, and overall health/living conditions, as well as any potential risks or complications that may occur from a failure to adhere to, and participate in, the recommended course of therapy. The discussion included a complete verbal, and/or written explanation of the examination results, any x-rays taken, the proposed diagnosis, and outline of the treatment plan. A schedule for future care needs was also explained. The patient verbalized an understanding of the instructions at this time and agreed to be an active participant in their treatment. If the patient should think of any questions or concerns after the visit, I have encouraged the patient to call the office.?Cellulitis/Lymphangitis?The patient was counseled on the diagnosis, etiology, treatment options, and importance for adherence to recommendations regarding the treatment for Cellulitis. Abx were Rxed to address the cellulitis. The advantages and disadvantages of an antibiotic medication, along with its side effects, were discussed with the patient to their comprehended satisfaction. Patient questions re: use, dosage, and possible pharmacutical interactions were reviewed and the answers clearly understood. If the condition should worsen while taking the antibiotics as directed, it was recommeded that the patient call the office immediately or seek emergency medical care. The patient verbally confirmed a full understanding of the above information, Rxed Abx, ER: Discussed with the patient that if there is any worsening of the condition, then he/she is to report to the ER/EW for evaluation/treatment. The patient stated to fully understand the recommendations/instructions.? * Follow Up:?2 Weeks * Images: * Sign off status: Completed true * Provider:?Norma Lutz DPM Date:?2023 Generated for Rivera stewart/Mainor/Hailey on:?01/08/2025 03:10 PM EDT History and Physical Notes * HPI (History of Present Illness) Category Sub-Category Detail Notes Category Not es Possible Infection Location: Great toe, Left foot Duration: several months Nature: drainage, swelling, throbbing, redness, weeping Onset: sudden Course: worse Aggravated by: any pressure Treatments: medication ( 2 round s of oral antibiotics- Cefuroxime Axetil 500mg and doxycycline 100mg ), did not improve condition Examination Category Sub-Category Detail Notes Category Not es Neurological SENSORY: Neurological exa m reveals intact sensorium, pain sensation normal, vibration sensation intact, pinprick sensation is normal in the lower extremities, Pt denies, anesthesia, burning, paresthesia, tingling, B/L Dermatologic SKIN FINDINGS: Skin shows sign( s) of, cellulitis with localized lymphangitis to the level of the1st MTPJ left General Examination GENERAL APPEARANCE: Denies f ever, chills, malaise, lymphadenopathy Vascular DP PULSES (B): 2/4, B/L PT PULSES (B): 2/4, B/L CAPILLARY FILL TIME: immediate, all digi ts, B/L TEMPERTURE GRADIENT (C): normal, warm to cool, proximal to distal, B/L, B/L TROPHIC CONDITION-TEXTURE/ELASTICITY/TURGOR/HAIR GROWTH (B): normal, B/L EDEMA (C): absent, B/L PIGMENTATION: normal, B/L Abscess/infected nail INSPECTION Reveals Haas bungual Abscess with nail fluctuance, mild localized erythema, and yellow purulent fluid with pre-operative size approximately ( 1-2 ) mm square, but without exposed bone, TA
--- OUTSIDE RECORDS SUMMARY | 2025-01-08 15:10 | XMS_ITS | Patient Health Record ---
Author Organization [facility] Address [address] [address] Care Team Providers Care Political Science Professor Name Role Phone Rivera Núñez Primary Care Provider Unav ailable Black, Norma Unavailable [phone] Allergies No Known Allergies Reason For Referral No Information Medications Medication SIG (Take, Route, Frequency, Duration) Notes Start Date End Date Status Cefuroxime Axetil 500 MG Oral for 5 Days Not-Taking Doxycycline Hyclate 100 MG Oral for 7 Days Not-Taking Cephalexin 500 MG 1 capsule [...] ast year? No Points 0 Interpretation Negative Problems Problem Type SNOMED Code ICD Code Onset Dates Problem Status W/U Status Risk Notes Problem Ulcer of toe of right foot (disorder) (10700988045 970490) Skin ulcer of toe of right foot, limited to breakdown of skin (L97.511) Active confirmed Problem Ulcer of toe of left foot (disorder) (37649359688 237720) Skin ulcer of toe of left foot, limited to breakdown of skin (L97.521) Active confirmed Vital Signs Height 6ft in 08/28/2024 Weight 180 lbs 08/28/2024 BMI 24.41 kg/m2 08/28/2024 Procedures Procedure Date Ordered Date Performed Result Body Sit e 06567 I&D ABSCESS- SIMPLE,SINGLE 08/13/2024 N/A 63555- Debride <25 sq cm 08/28/2024 N/A Encounters Encounter [facility] Date [facility] [address] [place] [address] 08/13/2024 Norma Black Abscess of toe, left L02.612 ; Cellulitis of left toe L03.032 and Left foot pain M79.672 [facility] [place] [address] [place] [address] 08/28/2024 Norma Black Skin ulcer of toe of left foot, limited to breakdown of skin L97.521 Assessments Encounter Date Diagnosis (ICD Code) Assessment Notes Treatment Notes Treatment Clinical Notes Section Notes 08/13/2024 Cellulitis of left toe (ICD-10 - L03.032) l 08/13/2024 Abscess of toe, left (ICD-10 - L02.612) Patient Educated with: WOUND CARE INSTRUCTIONS.p df (WOUND CARE INSTRUCTIONS.p df) l 08/28/2024 Skin ulcer of toe of left foot, limited to breakdown of skin (ICD-10 - L97.521) Patient Educated with: WOUND CARE INSTRUCTIONS.p df (WOUND CARE INSTRUCTIONS.p df) 08/13/2024 Left foot pain (ICD-10 - M79.672) l 08/28/2024 Other Plan Of Treatment Pending Test Test Name Order Date 14737- Debride <25 sq cm 08/28/2024 34551 I&D ABSCESS- SIMPLE,SINGLE 024 Insurance Providers Payer Name Payer Address Payer Phone Subscriber Number Group Number Insured Name Patient Relationship to Insured Coverage Start Date Coverage End Date [facility] [address] [place] [address] [id number] Neel Issa Self - patient is the insured Medical (General) History Medical History History ICD Code asthma covid-19 Psoriasis
--- OUTSIDE RECORDS SUMMARY | 2025-01-08 15:10 | XMS_ITS ---
Author Organization 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 Name Role Phone Rivera Núñez Primary Care Provider Unav ailable Black, Norma Unavailable [phone] Allergies No Known Allergies REASON FOR VISIT Open sore - Toe Medications Medication SIG (Take, Route, Frequency, Duration) [...] Risk Notes Problem Ulcer of toe of left foot (disorder) ([id number] 826561) Skin ulcer of toe of left foot, limited to breakdown of skin (L97.521) Active confirmed Problem Ulcer of toe of right foot (disorder) (83212200568 442067) Skin ulcer of toe of right foot, limited to breakdown of skin (L97.511) Active confirmed Vital Signs Height 6ft in 08/28/2024 Weight 180 lbs 08/28/2024 BMI 24.41 kg/m2 08/28/2024 Procedures Procedure Date Ordered Date Performed Result Body Sit e 29872- Debride <25 sq cm 08/28/2024 N/A Encounters Encounter Location Date Provider Diagnosis [facility] [address] [place] [address] 08/28/2024 Norma Lutz Skin ulcer of toe of left foot, limited to breakdown of skin L97.521 Assessments Encounter Date Diagnosis (ICD Code) Assessment Notes Treatment Notes Treatment Clinical Notes Section Notes 08/28/2024 Skin ulcer of toe of left foot, limited to breakdown of skin (ICD-10 - L97.521) Patient Educated with: WOUND CARE INSTRUCTIONS.p df (WOUND CARE INSTRUCTIONS.p df) 08/28/2024 Other Plan Of Treatment Treatment Notes Assessment Notes Skin ulcer of toe of left fo ot, limited to breakdown of skin Patient Educated with: WOUND CARE INSTRUCTIONS.pdf (WOUND CARE INSTRUCTIONS.pdf) Pending Test Test Name Order Date 99086- Debride <25 sq cm 08/28/2024 Next Appt Details Follow Up: prn, Reason: Procedure Notes * Category Sub-Category Detail Notes Debride skin< 25 sq cm Open wound Physician of record performed open wound selective debridement of first 25 sq cm or less, of devitilized necrotic/nonviable soft tissue, fibrin, and exudate extending from the epidermis through the dermis, utilizing sharp dissection with sterile 15 blade, and/or tissue nippers. Sterile antibiotic dressing applied, ANESTHESIA- was accomplished TOPICALLY with Lidocaine Hydrochloride Jelly 2 percent. Hemostasis was achieved through direct pressure. Post debridement measurements: 23 mm x27mm x 2mm. Character of the wound post debridement is stable (10491) Progress Notes * Neel OLSEN ADOB: [birth year] (28 yo M)Acc No.[id number]:08/28/2024 Progress Notes Patient:?Neel OLSEN A Provider:?Norma Lutz DPM :1995???Age:28 Y???Sex:Male Kosta e:08/28/2024 Address:[address], [facility], [facility] Pcp:Rivera Colbert NP-ELIZABETH Subjective: * Chief Complaints: * ???Open sore - Toe * HPI: ???Skin problems:?Nature:?Open sore.?Treatments:?Topical abx, soaks.? * ROS:?General/Constitutional:?Nausea?denies.?Vomiting?denies.?Hunger Thirst?denies.?Loss appetite?denies.?Chills?denies.?Fatigue?denies.?Fever?denies.?Night Sweats?denies.?Unexplained weight loss?denies.?Unexplained weight gain?denies.?HEENTM:?Dentures?denies.?Dizziness?denies.?Glasses/contacts?denies.?Retinopathy?de nies.?Blurred/double vision?denies.?TMJ?denies.?Discharge/drainage?denies.?Implants?denies.?Sore throat?denies.?Dental implants?denies.?Hard of hearing ?denies.?Difficulty chewing/swallowing/speaking?denies.?Nose bleeds?denies.?Sore mouth?denies.?Respiratory:?On Oxygen?denies.?Pneumonia/pleurisy?denies.?Bronchitis?denies.?Emphysema?denies.?C oughing?denies.?Cough blood?denies.?Shortness of breath?denies.?Wheezing?denies.?Cardiovascular:?Pacemaker?denies.?MVP?denies.?WPW?denies.?CHF?denies.?Heart attack?denies.?Septal defect?denies.?Rapid beat?denies.?Chest pain ?denies.?Atrial Fib.?denies.?Murmur/Palpitations?denies.?Gastrointestinal:?Hemorrhoids?denies.?Stomach/Abdominal pain?denies.?Dark blood stool?denies.?Irritable bowel ?denies.?Constipation?denies.?Diarrhea?denies.?Hematology:?Swelling?denies.?Clots?denies.?Varicose Veins?denies.?Bruising?denies.?Bleeding problem?denies.?Genitourinary:?Blood urine?denies.?Frequent/Painfu/urination/bladder control?denies.?Kidney stones?denies.?Infection (UTI)?denies.?Nephropathy?denies.?sex trans dis (STD)?denies.?Prostate?denies.?Musculoskeletal:?Hammertoes?denies.?Bunions?denies.?Back Pain?denies.?Muscle Cramps/ Resting?denies.?Muscle cramps / walking?denies.?Generalized aches and pains?admits.?Weakness?denies.?Integ.:?Hopson?denies.?Scars?denies.?Corns/calluses?denies.?Ingrown nails?admits.?Painful nails?admits.?Open Sores?, admits.?Rashes?denies.?Neurologic:?Difficulty sleeping?denies.?Brain disorder?denies.?Numbness?denies.?Balance trouble?denies.?Confusion?denies.?Fainting/blackouts?denies.?Tingling?denies.?Tr emors?denies.? * Medical History:? [...] sports. ?Marital status: single. ?Occupation: Works Full-time [employer]. ???Drug/Alcohol:?AUDIT-C (Standard)?Did you have a drink containing alcohol in the past year??No ?Points?0 ?Interpretation?Negative * Medications:?TakingCephalexi n 500 MG Capsule 1 capsule Orally twice a day Taking Cephalexin 500 MG Capsule 1 capsule Orally twice a day Not-Taking/PRNCefuroxime Axetil 500 MG Tablet Oral Doxycycline Hyclate 100 MG Tablet Oral Medication List reviewed and reconciled with the patientNot-Taking/PRN Cefuroxime Axetil 500 MG Tablet Oral Not-Taking/PRN Doxycycline Hyclate 100 MG Tablet Oral Medication List reviewed and reconciled with the patient * Allergies:?N.K.D.A.yes[Aller gies Verified] Objective: * Vitals:?Ht: 6ft, Wt:180, BMI :24.41, Shoe size: 10, Ht-cm: 182.88 cm, Wt-k.65 kg. * Examination: ???Dermatologic: ?ULCER:? LOCATION,TA, Dorsal, SIZE, 25 mm X 20 mm X 1-2mm, BASE, granular to epithelialized, RIM, hyperkeratotic, UNDERMINING, absent, TRACKING, Partial to, Full thickness breakdown of skin, DRAINAGE, serosanguineous, mild, NECROTIC TISSUE, loosely-adherent, yellow slough, MALODOR, absent, CALOR, absent, ERYTHEMA, absent, PAIN ON PALPATION, mild.? Assessment: * Assessment: 1.?Skin ulcer of toe of left foot, limited to breakdown of skin - L97.521 (Primary)??? Plan: * Treatment: * Procedures:?Debride skin< 25 sq cm:?Open wound?Physician of record performed open wound selective debridement of first 25 sq cm or less, of devitilized necrotic/nonviable soft tissue, fibrin, and exudate extending from the epidermis through the dermis, utilizing sharp dissection with sterile 15 blade, and/or tissue nippers. Sterile antibiotic dressing applied, ANESTHESIA- was accomplished TOPICALLY with Lidocaine Hydrochloride Jelly 2 percent. Hemostasis was achieved through direct pressure. Post debridement measurements: 23 mm x27mm x 2mm. Character of the wound post debridement is stable (29148).? * Procedure Codes:?65962 ACTIV E WOUND CARE/20 CM OR <, Modifiers: TA * Preventive Medicine:? ??Counseling:?Ulcer:?The patient is to cont the local wound care as directed till completely healed.? * Follow Up:?prn * Images: * Sign off status: Completed true * Provider:?Norma Lutz DPM Date:?2023 Generated for Rivera stewart/Maionr/eTransmitting on:?01/08/2025 03:09 PM EDT History and Physical Notes * HPI (History of Present Illness) Category Sub-Category Detail Notes Category Not es Skin problems Nature: Open sore Treatments: Topical abx, soaks Examination Category Sub-Category Detail Notes Category Not es Dermatologic ULCER: LOCATION,TA, Carter giovanny, SIZE, 25 mm X 20 mm X 1-2mm, BASE, granular to epithelialized, RIM, hyperkeratotic, UNDERMINING, absent, TRACKING, Partial to, Full thickness breakdown of skin, DRAINAGE, serosanguineous, mild, NECROTIC TISSUE, loosely-adherent, yellow slough, MALODOR, absent, CALOR, absent, ERYTHEMA, absent, PAIN ON PALPATION, mild
== END 2025-01-08 14:01 | disposition home or self-care (01) ==
PROVIDERS: PCP Nurse Practitioner Family; Visit Provider Physician Assistant
DX: B37.0 Candidal stomatitis (principal)

== ENCOUNTER → 2025-01-08 12:22 | Outpatient (BNVA) | payer OTHER, SELFPAY | PROVIDERS: PCP Nurse Practitioner Family ==

== ENCOUNTER 2025-03-16 12:54 | Outpatient (AMB) | payer OTHER, SELFPAY ==
[2025-03-16 12:57] VITALS: BP 126/76; PULSE 75; RESP 16; TEMP 37; O2SAT 99; BMI 25.4
--- NOTE | 2025-03-16 12:57 | MHC.PC.OV ---
Vital Signs 03/16/25 12:57 Height 6 ft Weight 187 lb BMI 25.4 BP 126/76 Blood Pressure Location Lt brachial Position Sitting Respiration 16 Pulse 75 Pulse Source Pulse Oximeter Temp 98.6 F Temp Source Oral Pulse Oximetry (%) 99 Oxygen Delivery Method Room Air Intake Visit Reasons: ANNUAL PE Intake Note: Pt is here today for his PE Allergies No Known Allergies (No Known Allergies*) Allergy (Verified 03/16/25 13:13) Medication List - Last Reconciled 03/16/25 by JORDON Loomis No Known Home Meds Tobacco use date assessed: 03/16/25 Dental Screening Dental Screen Date: 03/16/25 Did you have a dental visit in the last 12 months?: No Did you have a dental problem in the last 6 months where you did not have access to dental care?: No Was dental information given to patient?: Patient has dentist [facility] Medical History Right knee dislocation Social History Housing: House Alcohol intake: never Patient Tobacco Use Status: Never used Tobacco e-Cigarette/Vaping Use: Never Used Current occupational status: employed Cognitive needs: No Hearing needs: No Vision needs: No Questionnaire PHQ-9 Over the last 2 weeks, how often have you been bothered by any of the following problems? 1. Little interest or pleasure in doing things: more than half the days 2. Feeling down, depressed, or hopeless: more than half the days 3. Trouble falling or staying asleep, or sleeping too much: several days 4. Feeling tired or having little energy: not at all 5. Poor appetite or overeating: not at all 6. Feeling bad about yourself - or that you are a failure or have let yourself or your family down: nearly every day 7. Trouble concentrating on things, such as reading the newspaper or watching television: not at all 8. Moving or speaking so slowly that other people could have noticed. Or the opposite - being so fidgety or restless that you have been moving around a lot more than usual: not at all 9. Thoughts that you would be better off or of hurting yourself in some way: several days Total score: 9 Depression Screening Interpretation: Positive (denies si or hi, refuses therapist/treatment) Depression Screening Follow-up: Existing condition Depression Screening Done: Yes Source: Developed by Drs. Emiliano Perez, Aysha Moreira, Mark Luna and colleagues, with an educational ernesto from [employer]. Thrive Questionnaire I am a: Patient What is your living situation today?: I have a steady place to live Within the past 12 months, did the food you bought not last and you didn't have the money to get more?: Never true Within the past 12 months, did you worry whether your food would run out before you got money to buy more?: Never true Do you have trouble paying for medicines?: No Do you have trouble getting transportation to medical appointments?: No Do you have trouble paying your heating and electricity bill?: No Do you have trouble taking care of your child, family member or friend?: No Do you have trouble with day-to-day activities such as bathing, preparing meals, shopping, managing finances, etc.?: No Are you currently unemployed and looking for a job?: No Are you interested in more education?: No Please select the resources that you would like help with: None Currently or been in a relationship where the following occur: No concerns reported THRIVE Score: 0 AUDIT C Alcohol Use Questionnaire (AUDIT-C) 1. How often do you have a drink containing alcohol?: Never Total Score: 0 MARTHA-7 AMB Questionnaire MARTHA-7 Feeling nervous, anxious, or on edge: 1 = Several days Not being able to stop or control worryin = Several days Worrying too much about different things: 1 = Several days Trouble relaxin = Not at all Being so restless that it is hard to sit still: 0 = Not at all Becoming easily annoyed or irritable: 1 = Several days Feeling afraid as if something awful might happen: 0 = Not at all Total MARTHA-7 score (0-4 normal; 5-9 mild; 10-14 moderate; 15-21 severe): 4 Source: Developed by Drs. Emiliano Perez, Aysha Moreira, Mark Luna and colleagues, with an educational ernesto from [employer]. MARTHA-7 Assessment Billing MARTHA-7 Assessment Tool: MARTHA-7 Assessment 12648 Physical exam (Primary Care) Vital Signs: Last Vital Signs Temp 98.6 F 03/16/25 12:57 Pulse 75 03/16/25 12:57 Resp 16 03/16/25 12:57 BP 126/76 03/16/25 12:57 Pulse Ox 99 03/16/25 12:57 Oxygen Delivery Method Room Air 03/16/25 12:57 BMI result Body Mass Index 25.4 Tobacco/Smoking Status: Tobacco use Status Tobacco use date assessed 03/16/25 03/16/25 13:02 Patient Tobacco Use Status Never used Tobacco 03/16/25 13:02 e-Cigarette/Vaping Use Never Used 03/16/25 13:02 PHQ-9: PHQ-9 Score PHQ-9: Total score 9 03/16/25 13:02 Depression Screening Interpretation: Positive (denies si or hi, refuses therapist/treatment) Depression Screening Follow-up: Existing condition Currently or been in a relationship where the following occur: No concerns reported Coding Level of Care Code Est Pt Prev Care 18-39y(70296) Diagnoses Physical exam Z00. Additional Codes MARTHA-7 Assessment Billing - MARTHA-7 Assessment Tool: MARTHA-7 Assessment 24775 ([id number]) Assessment & Plan Assessment & Plan (1) Physical exam: Code(s): Z00.00 - Encounter for general adult medical examination without abnormal findings Category: Medical Plan . Orders: Orders TSH reflex Free T4 Today Z00.00 - Encounter for general adult medical examination without abnormal findings UA CC w/rflx Micro + Cult Today Z00.00 - Encounter for general adult medical examination without abnormal findings Complete Blood Count Auto Diff Today Z00.00 - Encounter for general adult medical examination without abnormal findings Comprehensive [place]. Panel Fast Today Z00.00 - Encounter for general adult medical examination without abnormal findings Lipid Panel Today Z00.00 - Encounter for general adult medical examination without abnormal findings
--- OUTSIDE RECORDS SUMMARY | 2025-03-16 14:15 | XMS_ITS | Patient Health Record ---
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 Role Phone Rivera Núñez Primary Care Provider Unav ailable Black, Norma Unavailable [phone] Allergies No Known Allergies Reason For Referral [...] Ulcer of toe of right foot (disorder) ([id number] 374722) Skin ulcer of toe of right foot, limited to breakdown of skin (L97.511) Active confirmed Problem Ulcer of toe of left foot (disorder) (46440958345 980864) Skin ulcer of toe of left foot, limited to breakdown of skin (L97.521) Active confirmed Vital Signs Height 6ft in 08/28/2024 Weight 180 lbs 08/28/2024 BMI 24.41 kg/m2 08/28/2024 Procedures Procedure Date Ordered Date Performed Result Body Sit e 50447- Debride <25 sq cm 08/28/2024 N/A 30410 I&D ABSCESS- SIMPLE,SINGLE 08/13/2024 N/A Encounters Encounter Location Date [facility] [address] [place] [address] 08/13/2024 Norma Black Abscess of toe, left L02.612 ; Cellulitis of left toe L03.032 and Left foot pain M79.672 [facility] [address] [place] [address] 08/28/2024 Norma Black Skin ulcer of toe [...] Treatment Pending Test Test Name Order Date 30567- Debride <25 sq cm 08/28/2024 93574 I&D ABSCESS- SIMPLE,SINGLE 024 Insurance Providers Payer Name Payer Address Payer Phone Subscriber Number Group Number Insured Name Patient Relationship to Insured Coverage Start Date Coverage End Date [facility] [address] [place] [address] [id number] Neel Issa Self - patient is the insured Medical (General) History Medical History History ICD Code asthma covid-19 Psoriasis
== END 2025-03-16 13:23 | disposition home or self-care (01) ==
LOC: HO.HMCC 12:55
PROVIDERS: PCP Nurse Practitioner Family; Visit Provider Nurse Practitioner Family
DX: Z00.00 Encounter for general adult medical examination without abnormal findings (principal)

== ENCOUNTER → 2025-03-16 12:54 | Outpatient (BNVA) | payer OTHER, SELFPAY | PROVIDERS: PCP Nurse Practitioner Family; Visit Provider Nurse Practitioner Family | DX: Z00.00 Encounter for general adult medical examination without abnormal findings (principal) | CPT/HCPCS: 96127 ==

== ENCOUNTER 2025-04-22 14:03 | Outpatient (AMB) | payer OTHER, SELFPAY ==
[2025-04-22 14:11] VITALS: BP 116/72; PULSE 66; TEMP 36.7; O2SAT 98; BMI 25.3
--- NOTE | 2025-04-22 14:11 | AM.OFFWIN_ITS ---
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 - The patient reports a bump on his fing er with white dots underneath that developed into a sore two days ago. - The bump was present for a while befor e becoming a sore, with no bleeding or pus noted. - The patient describes the sore as open , with the flap of skin causing some discomfort. - He denies trauma, fever, chills, disch arge, bleeding, joint pain, bites, or other rashes. Physical Exam General: Cooperative, healthy appearing, comfortable, no acute distress and well developed Respiratory: Normal respiratory effort and able to speak in complete sentences. Clear to auscultation bilaterally Cardiovascular: Regular rate and rhythm. Normal S1 and S2 Skin: Single, small, raised, hard, non-tender papule noted on the left 2nd digit in the distal phalanx distal to the nail fold. Open sore, no bleeding, no foreign body, no pus noted. Neuro: Sensation is intact Extremities: Normal to inspection. No rashes or erythema noted. No induration noted. Patient was informed and verbally consented to the use of an ambient scribe for clinic note documentation during this visit. [facility] Medical History Right knee dislocation Social History Housing: House Alcohol intake: never Patient Tobacco Use Status: Never used Tobacco e-Cigarette/Vaping Use: Never Used Current occupational status: employed Cognitive needs: No Hearing needs: No Vision needs: No Review of Systems Const All systems reviewed & are unremarkable except as noted in HPI and below Physical Exam Vital Signs: Last Vital Signs Temp 98.1 F 04/22/25 14:11 Pulse 66 04/22/25 14:11 BP 116/72 04/22/25 14:11 Pulse Ox 98 04/22/25 14:11 Oxygen Delivery Method Room Air 04/22/25 14:11 BMI result Body Mass Index 25.3 Assessment & Plan Assessment & Plan (1) Lump on finger: Code(s): R22.30 - Localized swelling, mass and lump, unspecified upper limb Qualifiers: Laterality: left Qualified Code(s): R22.32 - Localized swelling, mass and lump, left upper limb Plan Most likely abrasion vs wart vs ?FB vs abscess Plan - warm water soaks with Epsom salt - Prescribe antibiotic ointment to be applied three times daily for seven days. - If the sore does not resolve, consider referral to dermatology for further evaluation and possible scraping. Medications: New mupirocin 2% 1 appl topical TID 22 grams 0RF Coding Level of Care Code Est Pt Level 3 (10639) Diagnoses Mass of finger of left hand R22.32 Laterality: left
--- OUTSIDE RECORDS SUMMARY | 2025-04-22 14:44 | XMS_ITS | Patient Health Record ---
Author Organization [facility] Address [address] [place] [address] Care Team Providers Care Painting Technician Name Role Phone Rivera Núñez Primary Care Provider Unav ailable Black, Norma Unavailable [phone] Allergies No Known Allergies Reason For Referral No Information Medications Medication SIG (Take, Route, Frequency, Duration) Notes Start Date End Date Status Cefuroxime Axetil 500 MG Oral; Duration: 5 Days Not-Taking Doxycycline Hyclate 100 MG Oral; Duration: 7 Days Not-T aking Cephalexin 500 MG 1 capsule Orally twi ce a day; Duration: 10 days 08/13/2024 Active Social History Tobacco [...] Ulcer of toe of right foot (disorder) ([id number] 908792) Skin ulcer of toe of right foot, limited to breakdown of skin (L97.511) Active confirmed Problem Ulcer of toe of left foot (disorder) (39896121609 665694) Skin ulcer of toe of left foot, limited to breakdown of skin (L97.521) Active confirmed Vital Signs Height 6ft in 08/28/2024 Weight 180 lbs 08/28/2024 BMI 24.41 kg/m2 08/28/2024 Procedures Procedure Date Ordered Date Performed Result Body Sit e 29637 I&D ABSCESS- SIMPLE,SINGLE 08/13/2024 N/A 62566- Debride <25 sq cm 08/28/2024 N/A Encounters [facility]counter [facility] [address] [facility]/13/[facility]24 Norma Black Abscess of toe, left L02.612 ; Cellulitis of left toe L03.032 and Left foot pain M79.672 [facility] [address] [place] [address] 08/28/2024 Norma Black Skin ulcer of toe [...] Treatment Pending Test Test Name Order Date 11026- Debride <25 sq cm 08/28/2024 25500 I&D ABSCESS- SIMPLE,SINGLE 024 Insurance Providers Payer Name Payer Address Payer Phone Subscriber Number Group Number Insured Name Patient Relationship to Insured Coverage Start Date Coverage End Date [facility] [address] [place] [address] [phone] [id number] Neel Issa Self - patient is the insured Medical (General) History Medical History History ICD Code asthma covid-19 Psoriasis
== END 2025-04-22 15:13 | disposition home or self-care (01) ==
PROVIDERS: PCP Nurse Practitioner Family; Visit Provider Physician Assistant Medical
DX: R22.32 Localized swelling, mass and lump, left upper limb (principal)